=== PATIENT | female | born 1945 | race Caucasian/White ===

== ENCOUNTER 2023-02-21 12:11 | Emergency (ER) | payer OTHER ==
[~2023-02-21] VITALS: Ht 167.6 cm; Wt 50.8 kg
[2023-02-21 12:26] VITALS: BP 157/105; TEMP 98; O2SAT 98
== END 2023-02-21 13:45 | disposition home or self-care (01) ==
LOC: ER 12:11
DX: R04.0 Epistaxis (principal); Z85.3 Personal history of malignant neoplasm of breast
CPT/HCPCS: 99282; A6403